=== PATIENT | male | born 1995 | race Caucasian/White ===

== ENCOUNTER 2017-01-04 12:06 | Emergency (ER) | payer OTHER ==
[~2017-01-04] VITALS: Ht 180.3 cm; Wt 92.5 kg
[2017-01-04 12:19] VITALS: Ht 180.3 cm; Wt 92.5 kg
[2017-01-04] MEDS ORDERED: CETI10TA84 PO (12:28)
[2017-01-04] MEDS ORDERED: SODIUM CHLORIDE 0.9% 1000ML 500 ML IV STA (12:31)
[2017-01-04 12:58] LABS: HEMATOCRIT 47.4 % (42-52); MEAN CELL VOLUME 84.3 fL (80-100); MEAN CORPUSCULAR HEMOGLOBIN 30.2 pg (25-34); MEAN CORPUSCULAR HGB CONC 35.9 g/dl (32-36); MEAN PLATELET VOLUME 10.9 fL (7.4-10.4); PLATELET COUNT 185 K/uL (130-400); RED BLOOD COUNT 5.62 M/uL (4.7-6.1); WHITE BLOOD COUNT 4.28 K/uL (4.8-10.8)
[2017-01-04 13:17] LABS: BUN/CREATININE RATIO 12.3 (10-20); CALCIUM 9.1 mg/dl (8.5-10.1); CREATININE 0.94 mg/dl (0.60-1.40); POTASSIUM 4.3 mmol/L (3.5-5.1)
[2017-01-04 13:27] LABS: THYROID STIMULATING HORMONE 2.3 uIu/ml (0.300-4.500)
--- NOTE | 2017-01-04 14:26 | DIAGNOSTIC IMAGING REPORT ---
BILATERAL CAROTID DOPPLER STUDY HISTORY: Neurologic compromise RULE OUT DISSECTION COMPARISON: None. TECHNIQUE: Real-time, grayscale, and color Doppler sonography of the carotid arteries was performed. Imaging reviewed in the transverse and longitudinal planes. All measurements were calculated based on NASCET criteria. FINDINGS: Antegrade flow is seen in the bilateral vertebral arteries. The brachial pressures are hemodynamically similar. The peak systolic velocity within the right ICA is 92. The right systolic ratio is 0.7. The peak systolic velocity within the left ICA is 108. The left systolic ratio is 0.9. IMPRESSION: Normal study Electronically signed by: Han Marino M.D. 01/04/2017 2:24 PM Dictated Date/Time: 01/04/2017 2:23 PM
[2017-01-04 14:41] LABS: LYME DISEASE AB IGG NEG (NEG); LYME DISEASE AB IGM NEG (NEG)
--- NOTE | 2017-01-04 14:59 | DIAGNOSTIC IMAGING REPORT ---
Brain MRA HISTORY: Pain. Neuropathy. Evaluate for aneurysm, mass, or pathology TECHNIQUE: 3-D [id number] MRA of the brain was performed without contrast. COMPARISON STUDY: None. 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 Basilar artery is unremarkable. Right posterior cerebral fills the EXCLUSIVELY from the right posterior communicator. Anterior middle cerebral circulation is unremarkable. IMPRESSION: Negative study Electronically signed by: Han Marino M.D. 01/04/2017 2:58 PM Dictated Date/Time: 01/04/2017 2:56 PM
--- NOTE | 2017-01-04 15:22 | EMERGENCY ROOM VISIT NOTE ---
History Report prepared by Donnie: Kimberley Mustafa Under the Supervision of: Dr. Demetrius Aparicio M.D. First contact with patient: 12:30 Chief Complaint: HEADACHE Stated Complaint: RODRIGUEZ, NECK PAIN, SKIPPING OVER WORDS, NUMB-HEAD History of Present Illness The patient is a 21 year old male who presents to the Emergency Room with complaints of intermittent headache for the past few months. At worst, he rates his discomfort as a 4/10 in severity. Currently, the pain is present on the right side. His headaches have become more frequent in the past few days. He previously saw an loading and unloading supervisor and had a CT scan, but nothing was found. They suggested he see a neurologist and get an MRI/MRA, but the patient presented to the ED because of the long wait for an appointment. He reports feeling numbness in his head and also neck pain. He also feels shaky, has a weird taste in his mouth, and is having difficulty organizing his thoughts and speech. He reports "not feeling right" for the past few months. He denies any head trauma or extremity weakness. He has a family history of aneurysm. Source of History: patient Onset: few months ago Position: head Symptom Intensity: 4/10 at worst Timing: other (ache) Associated Symptoms: + neck pain, + numbness (in head), No weakness Note: Pt reports feeling shaky, having a weird taste in his mouth, and difficulty organizing thoughts and speech. He denies extremity weakness. Review of Systems See HPI for pertinent positives & negatives. A total of 10 systems reviewed and were otherwise negative. Past Medical & Surgical Medical Problems: (1) Chest pain Family History FHx: aneurysm Social History Smoking Status: Never Smoker Marital Status: single Housing Status: lives with roommate Occupation Status: student Current/Historical Medications Scheduled Cetirizine (Zyrtec), 10 MG PO DAILY Allergies Coded Allergies: POLLEN (Verified Allergy, Intermediate, SNEEZING, RUNNY NOSE, ITCHY EYES. , 09/03/16) Physical Exam Vital Signs Date Time Temp Pulse Resp B/P Pulse Ox O2 Delivery O2 Flow Rate FiO2 01/04/17 16:41 36.7 78 16 132/92 99 01/04/17 16:39 78 16 132/92 99 01/04/17 15:21 81 16 140/97 99 01/04/17 12:19 36.7 77 18 144/83 99 Physical Exam GENERAL: Patient is in no acute distress. HEENT: No acute trauma, normocephalic atraumatic, mucous membranes moist, no nasal congestion, no scleral icterus. PERRL. NECK: No stridor, no adenopathy, no meningismus, trachea is midline. No bruits. Equal carotid upstrokes bilaterally. LUNGS: Clear to auscultation bilaterally, no wheeze, no rhonchi, breath sounds equal. HEART: Without murmurs gallops or rubs, regular rate and rhythm. ABDOMEN: Soft, nontender, bowel sounds positive, no hernias, no peritonitis. EXTREMITIES: No cyanosis or edema, full range of motion of all the joints without pain or difficulty, no signs for acute trauma. NEUROLOGIC: Oriented x 3, no acute motor or sensory deficits, no focal weakness. No upper or lower extremity cerebellar disfunction, no upper or lower extremity drifting. No speech slur or facial droop. SKIN: No rash, no jaundice, no diaphoresis. Medical Decision & Procedures ER Provider Diagnostic Interpretation: Radiology results and stated below per my review and radiologist interpretation: BILATERAL CAROTID DOPPLER STUDY HISTORY: Neurologic compromise RULE OUT DISSECTION COMPARISON: None. TECHNIQUE: Real-time, grayscale, and color Doppler sonography of the carotid arteries was performed. Imaging reviewed in the transverse and longitudinal planes. All measurements were calculated based on NASCET criteria. FINDINGS: Antegrade flow is seen in the bilateral vertebral arteries. The brachial pressures are hemodynamically similar. The peak systolic velocity within the right ICA is 92. The right systolic ratio is 0.7. The peak systolic velocity within the left ICA is 108. The left systolic ratio is 0.9. IMPRESSION: Normal study Electronically signed by: Han Marino M.D. 01/04/2017 2:24 PM Dictated Date/Time: 01/04/2017 2:23 PM MRI OF THE BRAIN WITHOUT AND WITH IV CONTRAST CLINICAL HISTORY: Evaluate for mass, hemorrhage or pathology COMPARISON STUDY: 01/28/2014 TECHNIQUE: Utilizing a 1.5 Jennifer magnet and dedicated coil, multiplanar, multiecho imaging of the brain was performed pre and postcontrast administration. IV administration of 8 mL of Gadavist contrast was uneventful. FINDINGS: Focus of increased signal in the splenium of the corpus callosum. This is traversing the midline. Measures 10 x 5 mm. Shows no evidence for abnormal postcontrast enhancement. Signal characteristics the brain otherwise are unremarkable. Ventricular system is midline. Structures of the sella and parasellar region are unremarkable. IMPRESSION: 1. Focus of increased signal in the midline of the splenium of the corpus callosum. 2. This possibly is secondary to a transient lesion of the splenic and the corpus callosum, with the etiologies potentially including epilepsy, demyelinating disorder, electrolyte balance, versus a variety of less likely etiologies. 3. Standard procedure for this lesion is to recommend a repeat MRI of the brain in 4-6 weeks as follow-up. Electronically signed by: Han Marino M.D. 01/04/2017 3:32 PM Dictated Date/Time: 01/04/2017 3:24 PM Brain MRA HISTORY: Pain. Neuropathy. Evaluate for aneurysm, mass, or pathology TECHNIQUE: 3-D [id number] MRA of the brain was performed without contrast. COMPARISON STUDY: None. 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 Basilar artery is unremarkable. Right posterior cerebral fills the EXCLUSIVELY from the right posterior communicator. Anterior middle cerebral circulation is unremarkable. IMPRESSION: Negative study Electronically signed by: Han Marino M.D. 01/04/2017 2:58 PM Dictated Date/Time: 01/04/2017 2:56 PM Laboratory Results 01/04/17 12:45 01/04/17 12:45 Test 01/04/17 12:45 Red Blood Count 5.62 M/uL (4.7-6.1) Mean Corpuscular Volume 84.3 fL (80-100) Mean Corpuscular Hemoglobin 30.2 pg (25-34) Mean Corpuscular Hemoglobin Concent 35.9 g/dl (32-36) RDW Standard Deviation 37.6 fL (36.4-46.3) RDW Coefficient of Variation 12.4 % (11.5-14.5) Mean Platelet Volume 10.9 fL (7.4-10.4) Anion Gap 8.0 mmol/L (3-11) Est Creatinine Clear Calc Drug Dose 143.2 ml/min Estimated GFR () 132.9 Estimated GFR (Non- 114.6 BUN/Creatinine Ratio 12.3 (10-20) Calcium Level 9.1 mg/dl (8.5-10.1) Thyroid Stimulating Hormone (TSH) 2.300 uIu/ml (0.300-4.500) Lyme Disease IgG Antibody NEG (NEG) Lyme Disease IgM Antibody NEG (NEG) Laboratory results reviewed by me. Medications Administered Medications (Trade) Dose Ordered Sig/Jossue Route Start Time Stop Time Status Last Admin Dose Admin Sodium Chloride (Nss 1000ml) 500 ml @ 999 mls/hr Q31M STAT IV 01/04/17 12:31 01/04/17 13:01 DC 01/04/17 12:56 999 MLS/HR ECG Indication: other (numbness) Rate (beats per minute): 61 Rhythm: other (possible junctional rhythm vs sinus rhythm) Findings: no acute ischemic change, no ectopy ED Course 1230: The patient was evaluated in room C6. A complete history and physical exam was performed. 1231: NSS 500 ml @ 999 mls/hr IV. 1605: I discussed the patient's case with Dr. Gil, [facility] [place]. He can be discharged home and follow up with neurology as an outpatient. 1610: I reevaluated the patient. He is resting comfortably. I discussed the results and treatment plan with him. He verbalized understanding and agreement. He will be discharged home. 1619: I discussed the patient's case with Dr. Ariza, [facility] [place]. He can be discharged home. Medical Decision Differential diagnoses: aneurysm, carotid dissection, intracranial mass, lyme disease, migraine headache, intracranial bleeding, stress. There is no leukocytosis or concerning anemia. No significant electrolyte abnormality or kidney failure. Lyme disease testing was negative. Carotid ultrasound did not show evidence for dissection. On exam, the patient was not febrile or toxic, there were no focal neurologic findings, there was no meningismus. Brain MRI demonstrates a subtle abnormality in the corpus callosum of unknown significance, a follow-up study was suggested in about a month. There was no tumor or mass or stroke like finding seen by MRI. Brain MRA did not show evidence for aneurysm. EKG showed a possible junctional rhythm with a rate of 60, no acute ischemia. I spoke with cardiology about the EKG findings, the junctional rhythm was felt insignificant and very acceptable/normal in someone his age. It was not thought responsible for his presentation. I discussed the MRI findings with neurology. The patient is being discharged with an outpatient appointment. The patient for now will treat his headaches as if they are migrainous, over-the -counter pain medication, hydration, rest and fluids were encouraged. If things are worsening, he can return. Consults Time Called: 1559 Consulting Physician: Dr. Gil [facility] [place] neurology Returned Call: [phone] I discussed the patient's case with her. He can be discharged home and follow up with neurology as an outpatient. Additional Consults: Time Called: 1615 Consulted Physician: Dr. Ariza Returned Call: [phone] Additional Comments: I discussed the patient's case with him. The patient will be discharged home. Impression Primary Impression: Headache Scribe Attestation The scribe's documentation has been prepared under my direction and personally reviewed by me in its entirety. I confirm that the note above accurately reflects all work, treatment, procedures, and medical decision making performed by me. Departure Information Dispostion Home / Self-Care Referrals No Doctor, Assigned (PCP) Leonor Gil D.OGlenis Forms HOME CARE DOCUMENTATION FORM, IMPORTANT VISIT INFORMATION Patient Instructions My [facility] Additional Instructions follow with neurology--call for an appt stay well hydrated rest--8 hours per night return if worsening imaging was ok today as we discussed lab testing was all ok
--- NOTE | 2017-01-04 15:33 | DIAGNOSTIC IMAGING REPORT ---
MRI OF THE BRAIN WITHOUT AND WITH IV CONTRAST CLINICAL HISTORY: Evaluate for mass, hemorrhage or pathology COMPARISON STUDY: 01/28/2014 TECHNIQUE: Utilizing a 1.5 Jennifer magnet and dedicated coil, multiplanar, multiecho imaging of the brain was performed pre and postcontrast administration. IV administration of 8 mL of Gadavist contrast was uneventful. FINDINGS: Focus of increased signal in the splenium of the corpus callosum. This is traversing the midline. Measures 10 x 5 mm. Shows no evidence for abnormal postcontrast enhancement. Signal characteristics the brain otherwise are unremarkable. Ventricular system is midline. Structures of the sella and parasellar region are unremarkable. IMPRESSION: 1. Focus of increased signal in the midline of the splenium of the corpus callosum. 2. This possibly is secondary to a transient lesion of the splenic and the corpus callosum, with the etiologies potentially including epilepsy, demyelinating disorder, electrolyte balance, versus a variety of less likely etiologies. 3. Standard procedure for this lesion is to recommend a repeat MRI of the brain in 4-6 weeks as follow-up. Electronically signed by: Han Marino M.D. 01/04/2017 3:32 PM Dictated Date/Time: 01/04/2017 3:24 PM
[2017-01-04 16:41] VITALS: BP 132/92; PULSE 78; TEMP 36.7; O2SAT 99
== END 2017-01-04 16:45 | disposition home or self-care (01) ==
LOC: C.EDB 12:07 → C.EDC 16:45
DX: R51 Headache (principal); Z91.09 Other allergy status, other than to drugs and biological substances

== ENCOUNTER → 2017-01-21 | Outpatient (CLI) | payer OTHER ==
[~2017-01-21] MED LIST: CETI10TA84 PO
--- NOTE | 2017-01-21 15:55 | DIAGNOSTIC IMAGING REPORT ---
CERVICAL SPINE 5 VIEWS HISTORY: Pain [id number] Neck pain COMPARISON: None. FINDINGS: The cervical spine is visualized from C1 through the superior endplate of T1. There is no fracture. No subluxation. Disc spaces are preserved. C2-C3 partial fusion presumably on a congenital basis. IMPRESSION: No fracture or subluxation within the cervical spine. 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 No acute process. Electronically signed by: Han Marino M.D. 01/21/2017 3:53 PM Dictated Date/Time: 01/21/2017 3:52 PM
== END | disposition home or self-care (01) ==
LOC: C.RADBC 15:13
PROVIDERS: ATTEND Physician Assistant
DX: M54.2 Cervicalgia (principal); R51 Headache; R41.89 Other symptoms and signs involving cognitive functions and awareness; R53.83 Other fatigue; Q76.49 Other congenital malformations of spine, not associated with scoliosis

== ENCOUNTER → 2017-02-03 | Outpatient (CLI) | payer OTHER | END | disposition home or self-care (01) | LOC: C.LABBC 12:18 | PROVIDERS: ATTEND Physician Assistant | DX: R51 Headache (principal); M54.2 Cervicalgia; R41.89 Other symptoms and signs involving cognitive functions and awareness; R53.83 Other fatigue ==

== ENCOUNTER → 2017-02-11 | Outpatient (CLI) | payer OTHER ==
[~2017-02-11] MED LIST changes: +GADAVIST IV PRN
--- NOTE | 2017-02-11 09:51 | DIAGNOSTIC IMAGING REPORT ---
MRI OF THE BRAIN WITHOUT AND WITH IV CONTRAST CLINICAL HISTORY: Abnormal MRI scan. Follow-up examination. COMPARISON STUDY: 01/04/2017 TECHNIQUE: MRI of the brain was performed from the vertex to the skull base utilizing various T1 and T2 weighted sequences. Following the IV administration of 9.5 mL of Gadavist contrast, additional enhanced images were obtained. FINDINGS: Sagittal T1, axial diffusion, proton density and T2 weighted axial, coronal FLAIR, and pre and post axial T1-weighted images were acquired. These were supplemented with post gadolinium coronal T1 weighted images. No intra or extra-axial mass lesions are visualized. Axial diffusion-weighted images reveal no evidence of acute or subacute infarction. There is no evidence of ventricular dilatation. Proton density T2-weighted and FLAIR images reveal no significant intraparenchymal signal abnormalities. There are no abnormal flow voids. There is no evidence of pathologic enhancement. There are small maxillary sinus retention cysts. IMPRESSION: 1. Interval resolution of the signal abnormalities involving the splenium of the corpus callosum 2. Normal MRI of the brain Electronically signed by: Efrain Matt M.D. 02/11/2017 9:49 AM Dictated Date/Time: 02/11/2017 9:44 AM
== END | disposition home or self-care (01) ==
LOC: C.MRI 08:53
PROVIDERS: ATTEND Physician Assistant
DX: R93.8 Abnormal findings on diagnostic imaging of other specified body structures (principal)